=== PATIENT | male | born 1960 | race Caucasian/White ===

== ENCOUNTER → 2016-12-27 | Outpatient (CLI) | payer OTHER ==
[~2016-12-27] VITALS: Ht 177.8 cm; Wt 89.4 kg
[~2016-12-27] MED LIST: LEXISCAN IV STA
--- NOTE | 2016-12-30 18:54 | STRESS ---
DATE OF SERVICE: 12/27/2016 INDICATIONS: A 56-year-old gentleman with history of coronary artery disease, hypertension, hyperlipidemia, diabetes mellitus, and a family history of coronary artery disease. He had nonspecific chest pain symptoms, therefore, required a workup and study with a nuclear imaging study. The patient has a poor functional capacity, therefore, he elected to proceed with pharmacological modality for stress testing. The patient presented to the Stress [facility] in a fasting condition and signed the proper consent. Baseline blood pressure was 107/69 mmHg and heart rate 88. EKG showed a normal sinus rhythm without ischemic changes. The patient was injected with 0.4 mg of regadenoson followed by the stress dose of technetium sestamibi. One minute post infusion, blood pressure was 109/78 mmHg and heart rate 133. Five minutes post infusion, blood pressure was 121/72 mmHg and heart rate 113. The patient reported no symptoms, the recovery phase was uneventful, no ST changes of ischemia was noted, and no arrhythmia was seen. Myocardial perfusion imaging study was performed using technetium sestamibi on the same day as the stress rest protocol showing the followin. Study quality was good. 2. Attenuation artifacts were corrected. 3. Prone position was available. 4. Myocardial SPECT perfusion imaging showed homogenous tracer distribution among the different myocardial segments without perfusion defects, ischemia, or scarring. 5. The Gated function study showed normal wall motion, except for a minimal degree of anterior wall hypokinesia. EF was 58% and stroke volume 41 mL. IMPRESSION: 1. Nondiagnostic stress portion of LexiScan. 2. No EKG changes of ischemia. 3. No arrhythmia. 4. Normal hemodynamic response. 5. No symptoms reported. 6. Myocardial perfusion imaging study was normal without any perfusion defects, ischemia, or scarring. 7. The Gated function study showed minimal degree of anterior wall hypokinesia, otherwise normal. EF was 58%. 8. The study qualifies for low-risk for obstructive coronary artery lesion according to myocardial perfusion imaging criteria. Tom Hernandez MD DR: JHOAN/shaila JOB# [id number]
--- NOTE | 2016-12-31 08:56 | ECHO ---
DATE OF SERVICE: 12/27/2016 INDICATIONS: A 56-year-old gentleman with coronary artery disease, elected for an echocardiographic study for evaluation of structural heart disease or valvular heart condition or valvular heart diseases. FINDINGS: 1. Study quality was fair. 2. Underlying rhythm is sinus rhythm. 3. Overall, EF is around 60%. There is no visible wall motion abnormality. Mild degree of concentric LVH was noted. No LVOT obstruction. Septal thickness was upper limit of normal. 4. RV size and EF were normal. 5. Both atria showed minimal dilatation. 6. Mitral valve showed normal adequate opening and coaptation pattern. Trace mitral regurgitation was noted. No visible mitral stenosis. Doppler signal exam showed normal diastolic parameters. Mitral valve mean gradient was 1.2 mmHg. Therefore, no stenosis. 7. Aortic valve morphology is uncertain. Aortic valve mean velocity was 0.8 meter per second with an aortic valve area around 3 cm2 by VTI method, normal readings. 8. Mild tricuspid regurgitation. Pulmonary artery systolic pressure was estimated around 30-35 mmHg. 9. No aortic regurgitation by color Doppler exam. 10. No pericardial effusion. 11. Inferior vena cava was normal in size at 1.6 cm. IMPRESSION: 1. Fair quality study. 2. Underlying rhythm is sinus rhythm. 3. LV function was preserved around 60%. No wall motion abnormality noted. 4. Mild concentric LVH with normal LV dimension. No LVOT obstruction. 5. Normal septal thickness. 6. Normal RV size and EF. 7. Normal atrial size. 8. Trace mitral regurgitation, no stenosis. 9. Normal diastolic parameters. 10. No significant aortic pathology, uncertain morphology of the valve. 11. Normal PA pressure. 12. No pericardial effusion. 13. Normal IVC size. Tom Hernandez MD DR: JHOAN/shaila JOB# [id number]
== END | disposition home or self-care (01) ==
LOC: NM 08:51
PROVIDERS: ATTEND Internal Medicine
DX: I25.10 Atherosclerotic heart disease of native coronary artery without angina pectoris (principal); I10 Essential (primary) hypertension; E11.9 Type 2 diabetes mellitus without complications; E78.5 Hyperlipidemia, unspecified; Z82.49 Family history of ischemic heart disease and other diseases of the circulatory system
CPT/HCPCS: 78452; 93017; 93307; A9500; J2785

== ENCOUNTER 2017-04-19 21:24 | Emergency (ER) | payer OTHER ==
[~2017-04-19] VITALS: Ht 180.3 cm; Wt 81.6 kg
[2017-04-19] MEDS ORDERED: MOTRIN PO STA (21:46)
[2017-04-19] MEDS ORDERED: MOTRIN ONE (21:46)
--- NOTE | 2017-04-19 21:48 | ER.PDOC ---
General Chief Complaint: Sore Throat Stated Complaint: CONGESTION Time seen by MD: 21:47 Source: patient Exam Limitations: no limitations History of Present Illness Initial Comments Flu-like symptoms for 3 days Timing/Duration: gradual Severity: moderate Associated Symptoms: runny nose, sore throat, cough Allergies: Coded Allergies: No Known Allergies (Unverified , 12/27/16) Constitutional: see HPI EENTM: see HPI Respiratory: see HPI Cardiovascular: no symptoms reported Gastrointestinal: no symptoms reported All Other Systems: Reviewed and Negative Past Medical History Medical History: CVA/TIA/stroke, COPD, diabetes, high cholesterol, hypertension Physical Exam General Appearance: alert, no distress Nose: rhinorrhea Throat: pharynx nml, airway nml Neck: nml inspection, supple Respiratory: no resp.distress, breath sounds nml Abdomen: non-tender, no organomegaly CVS: reg rate & rhythm, heart sounds nml Skin: color nml, no rash, warm/dry Extremities: non-tender, nml ROM, no pedal edema NEURO/PSYCH: oriented x 3, CN's nml as tested, motor nml, sensation nml, mood/ affect nml Results/Orders Results/Orders Laboratory Tests Test 04/19/17 21:50 Influenza Virus Type A Antibody NEGATIVE (NEG) Influenza Virus Type B Antibody NEGATIVE (NEG) Group A Streptococcus Screen NEGATIVE (NEGATIVE) Administered Medications Medications (Trade) Dose Ordered Sig/Guzman Route PRN Reason Start Time Stop Time Status Last Admin Dose Admin Ibuprofen (Motrin) 800 mg STAT STAT PO 04/19/17 21:46 04/19/17 21:48 DC 04/19/17 21:56 Departure Time of Disposition: 22:41 Disposition: HOME, SELF-CARE Impression: Primary Impression: Acute bronchitis Qualified Codes: J20.9 - Acute bronchitis, unspecified Condition: Stable Referrals: PCP,UNKNOWN (PCP) PRIMARY CARE PROVIDER Additional Instructions: Z pack Mucinex DM OTC as directed F/U with your PCP next week Duration or Time Spent with Pa: 60 mins YUMIKO SANDRA MD Apr 19, 2017 21:48
[2017-04-19 22:33] LABS: STREP SCREEN NEGATIVE (NEGATIVE)
[2017-04-19] MEDS ORDERED: ROCEPHIN ONE (22:38)
[2017-04-19] MEDS ORDERED: LIDOCAINE 1% VIAL ONE (22:38)
[2017-04-19] MEDS ORDERED: KENALOG-40 IM STA (22:39)
[2017-04-19] MEDS ORDERED: KENALOG-40 ONE (22:39)
[2017-04-19] MEDS ORDERED: ROCEPHIN IM IM STA (22:39)
[2017-04-19] MEDS ORDERED: ROBITUSSIN AC PO STA (22:43)
[2017-04-19] MEDS ORDERED: ROBITUSSIN AC ONE (22:44)
[2017-04-19 23:01] VITALS: BP 125/74
== END 2017-04-19 23:00 | disposition home or self-care (01) ==
LOC: ER 21:24
DX: J20.9 Acute bronchitis, unspecified (principal); E11.9 Type 2 diabetes mellitus without complications; E78.00 Pure hypercholesterolemia, unspecified; I10 Essential (primary) hypertension; Z86.73 Personal history of transient ischemic attack (TIA), and cerebral infarction without residual deficits
CPT/HCPCS: 86710; 87070; 87880; 96372 ×2; 99284; J0696; J0745; J2001; J3301

== ENCOUNTER → 2017-08-20 | Outpatient (CLI) | payer OTHER ==
--- NOTE | 2017-08-20 12:30 | DIREP ---
PROCEDURE:CT CHEST WITHOUT CONTRAST TECHNIQUE:Axial cuts were obtained through the chest, without intravenous contrast material. The images were viewed at lung and soft tissue settings. Sagittal and coronal reconstructions are provided. COMPARISON:None. INDICATIONS:R91.1 SOLITARY PULMONARY NODULE FINDINGS: LUNGS:Left posteromedial lower lobe nodule 0.6 x 0.9 cm. No infiltrate or pleural effusion. CARDIAC:Normal size heart, coronary artery calcifications and normal pulmonary vascularity. THORACIC AORTA:Normal. MEDIASTINUM/RAMBO:No pathologic adenopathy. CHEST WALL:Normal. LIMITED ABDOMEN:Small hiatal hernia. BONES:Lower thoracic spondylosis and mild wedging. THYROID:Normal. OTHER:No additional findings. CONCLUSION:Left lower lobe noncalcified nodule, 0.6 x 0.9 cm. The findings described above include a newly detected solid pulmonary nodule of 6.1-8 mm average diameter. Guidelines from the Fleischner Society for the follow-up and management of newly detected indeterminate pulmonary nodules in persons >34 years old depend on nodule size (average of length and width) and underlying risk factors (including smoking and other risk factors). Please consider the following recommendations after clinical assessment of risk factors. For >6-8 mm nodules: In low risk patients, initial follow-up CT at 6-12 months, then 18-24 months if no change. In high risk patients, initial follow-up CT at 3-6 months, then 9-12 and 24 months if no change. Dictated by: Radha Haley MD on 08/20/2017 at 12:24 PM
== END | disposition home or self-care (01) ==
LOC: RAD 10:07
PROVIDERS: ATTEND Nurse Practitioner Family
DX: R91.1 Solitary pulmonary nodule (principal)
CPT/HCPCS: 71250

== ENCOUNTER 2022-09-03 21:21 | Emergency (ER) | payer MEDICARE, OTHER ==
[~2022-09-03] VITALS: Ht 180.3 cm; Wt 84.4 kg
--- NOTE | 2022-09-03 21:45 | NUR ---
ARRIVAL PT INTO ER VIA WHEELCHAIR WITH NO DISTRESS ON RA. PT HAD AN EGD/COLONOSCOPY DONE THIS MORNING BY DR LOVETT IN [place]. STATES HE IS EXTREMELY WEAK AND HAD A FEVER OF 101.8 AT HOME. WAS HAVING DIFFICULTY WALKING DUE TO WEAKNESS. NO PAIN OR NAUSEA AT THIS TIME. COLONOSCOPY SHOWED MULTIPLE NON BLEEDING COLONIC ANGIODYSPLASTIC LESIONS. HISTORY AND STATUS OBTAINED. VS AND ASSESSMENT COMPELTE CHARTED. DR GIPSON NOTIFIED OF PT ARRIVAL
[2022-09-03 22:07] VITALS: BP 113/68
--- NOTE | 2022-09-03 22:15 | ER.PDOC ---
General Chief Complaint: Fever Stated Complaint: WEAKNESS, FEVER Time seen by MD: 21:45 Source: patient Exam Limitations: no limitations History of Present Illness Initial Comments 62-year-old male that presents to the emergency room complaining of generalized weakness and fever. Patient states he had colonoscopy today in [place] by Dr Gan which went uneventful. Following that, patient had normal diet meal and tolerated the feeding well.Patient states that walking has become painful since the onset of symptoms few hours ago and that it has become more difficult due to body aches and pains and generalized weakness. However, he is able to walk. 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) Review of Systems Constitutional: fever, malaise, weakness Eyes: denies no symptoms reported, denies see HPI, denies blindness, denies blurred vision, denies drainage, denies decreased acuity, denies foreign body sensation, denies inflammation, denies pain, denies photophobia, denies previous injury, denies shadows, denies tunnel vision, denies vision change, denies contact lenses, denies glasses, denies other Ears, Nose, Mouth, Throat: denies no symptoms reported, denies see HPI, denies ear pain, denies ear discharge, denies nose pain, denies nose discharge, denies epistaxis, denies mouth pain, denies mouth swelling, denies loose teeth, denies throat pain, denies throat swelling Respiratory: denies no symptoms reported, denies see HPI, denies cough, denies orthopnea, denies shortness of breath, denies stridor, denies wheezing, denies other Psychiatric/Neurological: denies no symptoms reported, denies see HPI, denies anxiety, denies depressed, denies emotional problems, denies cognitive dysfunction, denies headache, denies numbness, denies petit mal seizures, denies tingling, denies tonic-clonic seizures, denies unable to move lower ext, denies unable to move upper ext, denies weakness, denies other All Other Systems: Reviewed and Negative Physical Exam General Appearance: alert, no distress HEENT: no apparent trauma, EOM's intact, no nystagmus, PERRL, ENT inspection nml, pharynx nml, airway intact, oral exam nml Neuro/Psych: oriented x3, nml speech/cognition, nml mood/affect Cranial Nerves: nml as tested Cerebellar: nml as tested Peripheral Exam: motor nml, sensation nml, reflexes nml Neck: supple, non-tender, no carotid bruit Respiratory: no resp distress, breath sounds nml CVS: reg rate & rhythm, heart sounds nml Abdomen: non-tender, no organomegaly, no distention Rectal Exam: Normal Exam, Normal Rectal Tone Skin: color nml, no rash, warm/dry Extremities: non-tender, nml ROM, no pedal edema Results/Orders Results/Orders Orders - KEVIN GIPSON MD Cbc W/O Diff (09/03/22 22:09) Comprehensive Metabolic Panel (09/03/22 22:09) Urinalysis (09/03/22 22:09) Influenza A&B (09/03/22 22:09) Covid19 Antigen Deborah Damaris (09/03/22 22:09) Acetaminophen (Tylenol) (09/03/22 22:53) Acetaminophen (Tylenol) (09/03/22 22:53) Vital Signs Date Time Temp Pulse Resp B/P (MAP) Pulse Ox O2 Delivery O2 Flow Rate FiO2 09/03/22 22:52 100.0 108 18 102/67 (79) 99 Room Air* 0 21 09/03/22 22:07 100.3 107 18 99 09/03/22 22:07 100.3 107 18 113/68 (83) 99 Room Air* 0 21 09/03/22 22:07 100.3 107 18 Administered Medications Medications (Trade) Dose Ordered Sig/Guzman Route PRN Reason Start Time Stop Time Status Last Admin Dose Admin Acetaminophen (Tylenol) 1,000 mg STAT STAT PO 09/03/22 22:53 09/03/22 22:54 DC 09/03/22 22:56 1,000 MG Laboratory Tests Test 09/03/22 22:33 09/03/22 23:10 White Blood Count 7.6 10^3/uL (4.5-11.0) Red Blood Count 2.68 10^6/uL (4.50-5.90) L Hemoglobin 9.2 g/dL (13.9-16.3) L Hematocrit 25.6 % (37.0-53.0) L Mean Corpuscular Volume 95.5 fL (78-100) Mean Corpuscular Hemoglobin 34.3 pg (26-34) H Mean Corpuscular Hemoglobin Concent 35.9 g/dL (33-36.5) Red Cell Distribution Width 13.1 % (11.5-14.5) Platelet Count 186 10^3/uL (150-400) Mean Platelet Volume 9.4 fL (7.8-11.0) Sodium Level 124 mmol/L (132-145) L Potassium Level 4.2 mmol/L (3.6-5.2) Chloride Level 94.0 mmol/L (96-109) L Carbon Dioxide Level 24.3 mmol/L (20.0-32) Anion Gap 9.9 Blood Urea Nitrogen 35 mg/dL (7-18) H Creatinine 2.34 mg/dL (0.59-1.40) H Estimated GFR () 34.1 (>/=60) Est GFR (CKD-EPI)(Non-Afr [place]) 28.2 (>/=60) BUN/Creatinine Ratio 14.0 (10.0-20.0) Glucose Level 166 mg/dL (74-106) H Calcium Level 7.7 mg/dL (8.4-10.5) L Total Bilirubin 0.8 mg/dL (0.2-1.0) Aspartate Amino Transferase (AST) 28 U/L (0-35) Alanine Aminotransferase (ALT) 23 U/L (12-78) Alkaline Phosphatase 101 U/L (50-136) Total Protein 8.8 g/dL (6.4-8.2) H Albumin 2.8 g/dL (3.4-5.0) L Globulin 6.0 Albumin/Globulin Ratio 0.466 Influenza Type A Antigen NEGATIVE (NEG) Influenza Type B Antigen NEGATIVE (NEG) SARS-CoV-2 Antigen (Rapid) NEGATIVE (NEGATIVE) Urine Collection Type CCMS Urine Color YELLOW Urine Appearance CLEAR Urine Bilirubin NEGATIVE (NEGATIVE) Urine Ketones NEGATIVE (NEGATIVE) Urine Specific [place] 1.010 (1.005-1.030) Urine pH 6.0 (4.5-8.0) Urine Protein 1+ (NEGATIVE) H Urine Urobilinogen 0.2 E.U./dL (0.2) Urine Nitrate NEGATIVE (NEGATIVE) Urine Leukocyte Esterase NEGATIVE (NEGATIVE) Urine Glucose (Auto)(UA) NEGATIVE (NEGATIVE) Urine Blood TRACE-INTACT (NEGATIVE) H Urine RBC 0-2 RBC/HPF (NONE SEEN) Urine WBC 0-2 WBC/HPF (0-2) Urine Bacteria FEW (NONE SEEN) H Progress Progress Torrential diagnosis: Viral illness, sepsis, post colonoscopy complication, electrolyte imbalance, sepsis, UTI Thus, CBC, CMP, UA and, viral studies will be acquired initially Results show that patient is anemic with a hemoglobin of 9.5 and hyponatremic at 129, and renal insufficiency with a high BUN/high creatinine of 35/2.34. Given his recent colonoscopy, not having a baseline hemoglobin and creatinine, offered patient observation to monitor labs and treat as needed. However patient states that he has an appointment with his own doctor in [place] in 2 days and he wants to leave AGAINST MEDICAL ADVICE. As listed on the [facility] paperwork, the dangers of leaving AGAINST MEDICAL ADVICE are discussed with patient refuses. His sister has been in the ER throughout. Patient finally left the emergency room AGAINST MEDICAL ADVICE. ER DEPART Departure Time of Disposition: 23:33 Disposition: 07 LEFT AGAINST MEDICAL ADVICE Impression: Primary Impression: Anemia Additional Impressions: Hyponatremia Renal insufficiency Fever Generalized weakness Condition: Against Medical Advice Referrals: MARTINEZ NUNN DO (PCP) PRIMARY CARE PROVIDER Duration or Time Spent with Pa: 45 Problem Qualifiers KEVIN GIPSON MD Sep 03, 2022 22:15
[2022-09-03 22:44] LABS: MEAN CORP HGB 34.3 pg (26-34); RED CELL DISTRIBUTION WIDTH 13.1 % (11.5-14.5)
[2022-09-03 22:52] VITALS: BP 102/67
[2022-09-03] MEDS ORDERED: TYLENOL PO STA (22:53)
[2022-09-03] MEDS ORDERED: TYLENOL PO ONE (22:53)
[2022-09-03 23:00] LABS: CARBON DIOXIDE 24.3 mmol/L (20.0-32)
[2022-09-03 23:19] LABS: BILIRUBIN,URINE NEGATIVE (NEGATIVE); UROBILINOGEN,URINE 0.2 E.U./dL (0.2)
== END 2022-09-03 23:30 | disposition left against medical advice (07) ==
LOC: ER 21:21
DX: D64.9 Anemia, unspecified (principal); E87.1 Hypo-osmolality and hyponatremia; N28.9 Disorder of kidney and ureter, unspecified; R50.9 Fever, unspecified; R53.1 Weakness; E11.9 Type 2 diabetes mellitus without complications; Z20.822 Contact with and (suspected) exposure to COVID-19
CPT/HCPCS: 99283; 87426; 80053; 85027; 87804 ×2; 81001; A9150